=== PATIENT | male | born 1975 | race Caucasian/White ===

== ENCOUNTER 2018-04-26 04:54 | Emergency (ER) | payer SELFPAY ==
[~2018-04-26] VITALS: Ht 175.3 cm; Wt 97.5 kg
[2018-04-26 05:16] VITALS: BP_SYST 139
== END 2018-04-26 06:29 | disposition left against medical advice (07) ==
LOC: SED 04:54
DX: R10.10 Upper abdominal pain, unspecified (principal); Z53.21 Procedure and treatment not carried out due to patient leaving prior to being seen by health care provider